=== PATIENT | female | born 1975 | race Two or more races ===

== ENCOUNTER 2018-05-06 18:27 | Emergency (ER) | payer SELFPAY ==
[~2018-05-06] VITALS: Ht 165.1 cm; Wt 82.6 kg
[2018-05-06 19:07] LABS: Urine Bacteria NONE SEEN /hpf (None Seen); Urine Blood Negative /uL (Negative); Urine Specific Gravity 1.013 (1.001-1.035); Urine WBC <1 /hpf (0 - 5)
[2018-05-06 19:11] LABS: Basophils # (auto) 0.1 uL; Eosinophils # (auto) 0.2 uL; Hemoglobin 11.3 g/dL (12.2-16.2); Monocytes # (auto) 0.7 uL; Nucleated Red Blood Cells % 0.1 %
[2018-05-06 19:13] LABS: Basophils % (auto) 0.6 % (0.0-2.0); Hematocrit 35.7 % (36.0-46.0); Lymphocytes % (auto) 22.9 % (10.0-50.0); Mean Corpuscular Hemoglobin 22.8 pg (28.0-32.0); Mean Corpuscular Hgb Conc. 31.7 g/dL (32.0-36.0); Monocytes % (auto) 7.8 % (0.0-12.0); Neutrophils % (auto) 66.7 % (37.0-80.0); Platelet Count (auto) 265 10^3/uL (140-450); Red Blood Cells 4.96 10^6/uL (4.0-5.20)
[2018-05-06 19:18] LABS: Albumin 3.5 g/dL (3.4-5.0); Calcium 8.5 mg/dL (8.5-10.1); Potassium 3.6 mmol/L (3.5-5.1); Red Cell Distribution Width 26.6 % (11.8-14.3)
[2018-05-06 19:21] LABS: BUN/Creatinine Ratio 21.7; Bilirubin, Total 0.2 mg/dL (0.2-1.0); Total Protein 7.5 g/dL (6.4-8.2)
[2018-05-06 21:28] VITALS: BP 131/72
== END 2018-05-06 21:32 | disposition home or self-care (01) ==
LOC: ER 18:27
DX: O20.0 Threatened abortion (principal); Z3A.09 9 weeks gestation of pregnancy
CPT/HCPCS: 36415; 76801; 80053; 81001; 84702; 85025